=== PATIENT | male | born 1975 | race Caucasian/White ===

== ENCOUNTER 2018-03-01 19:20 | Emergency (ER) | payer OTHER ==
[~2018-03-01] VITALS: Ht 177.8 cm; Wt 85.0 kg
[2018-03-01] MEDS ORDERED: SODIUM CHLORIDE 0.9% 1,000 ML IV ONE (19:47)
[2018-03-01] MEDS ORDERED: ASPIRIN 81 MG TABLET CHEW PO ONE (20:00)
[2018-03-01] MEDS ORDERED: PROPARACAINE OPHTH 0.5%, 15ML EACHEYE ONE (20:00)
[2018-03-01] MEDS ORDERED: ASPIRIN 81 MG TABLET CHEW ONE (20:01)
[2018-03-01] MEDS ORDERED: PROPARACAINE OPHTH 0.5%, 15ML ONE (20:01)
[2018-03-01 20:30] LABS: BASOPHILS # (AUTO) 0.04 x10^3/uL (0-0.1); BASOPHILS % (AUTO) 0 % (0-1); EOSINOPHILS # (AUTO) 0.04 x10^3/uL (0-0.4); EOSINOPHILS % (AUTO) 0 % (1-7); LYMPHOCYTES # (AUTO) 3.01 x10^3/uL (1-3.4); LYMPHOCYTES % (AUTO) 19 % (22-44); MD NO; MEAN CORPUSCULAR HEMOGLOBIN 29.4 pg (27.5-34.5); MEAN CORPUSCULAR HGB CONC 32.9 g/dL (33.2-36.2); MEAN CORPUSCULAR VOLUME 89.5 fL (81-97); MEAN PLATELET VOLUME 8.4 fL (7.4-10.4); MONOCYTES # (AUTO) 0.44 x10^3/uL (0.2-0.8); MONOCYTES % (AUTO) 3 % (2-9); NEUTROPHILS # (AUTO) 12.55 x10^3/uL (1.8-6.8); NEUTROPHILS % (AUTO) 78 % (42-75); PLATELET COUNT 225 x10^3/uL (130-400); RED BLOOD COUNT 5.94 x10^6/uL (4.38-5.82); RED CELL DISTRIBUTION WIDTH 14.4 % (9.4-14.8)
[2018-03-01 20:39] LABS: INTERNATIONAL NORMALIZED RATIO 1.11 (0.93-1.1); PROTHROMBIN TIME 11.5 Seconds (9.6-11.5)
[2018-03-01 20:42] LABS: ALBUMIN 4.4 g/dL (3.4-5.0); ANION GAP 7 mmol/L (5-15); CALCIUM 9.6 mg/dL (8.5-10.1); CHLORIDE 108 mmol/L (98-107); CREATININE 1.98 mg/dL (0.7-1.3)
[2018-03-01 20:46] LABS: TROPONIN I < 0.015 ng/mL (0.000-0.045)
[2018-03-01 22:14] LABS: MICROSCOPIC NOT IND
[2018-03-01 22:32] LABS: CULTURE INDICATED? NO
[2018-03-01 23:37] VITALS: BP 126/78
== END 2018-03-01 23:39 | disposition home or self-care (01) ==
LOC: ED 21:38
DX: H53.131 Sudden visual loss, right eye (principal); I50.9 Heart failure, unspecified; R51 Headache
CPT/HCPCS: 36415; 70450; 71045; 80048; 81003; 82040; 83880; 84484; 85025; 85610; 93005; 99285; J7030

== ENCOUNTER 2018-03-05 16:30 | Emergency (ER) | payer OTHER ==
[~2018-03-05] VITALS: Ht 177.8 cm; Wt 87.0 kg
[2018-03-05 17:27] LABS: BASOPHILS # (AUTO) 0.03 x10^3/uL (0-0.1); BASOPHILS % (AUTO) 0 % (0-1); EOSINOPHILS # (AUTO) 0.01 x10^3/uL (0-0.4); EOSINOPHILS % (AUTO) 0 % (1-7); LYMPHOCYTES # (AUTO) 2.17 x10^3/uL (1-3.4); LYMPHOCYTES % (AUTO) 16 % (22-44); MD NO; MEAN CORPUSCULAR HEMOGLOBIN 29.5 pg (27.5-34.5); MEAN CORPUSCULAR HGB CONC 32.7 g/dL (33.2-36.2); MEAN CORPUSCULAR VOLUME 90.1 fL (81-97); MEAN PLATELET VOLUME 8.3 fL (7.4-10.4); MONOCYTES # (AUTO) 0.61 x10^3/uL (0.2-0.8); MONOCYTES % (AUTO) 5 % (2-9); NEUTROPHILS # (AUTO) 10.43 x10^3/uL (1.8-6.8); NEUTROPHILS % (AUTO) 79 % (42-75); PLATELET COUNT 233 x10^3/uL (130-400); RED BLOOD COUNT 5.83 x10^6/uL (4.38-5.82); RED CELL DISTRIBUTION WIDTH 14.3 % (9.4-14.8)
[2018-03-05 17:35] LABS: ALANINE AMINOTRANSFERASE 21 U/L (12-78); ALBUMIN 4.3 g/dL (3.4-5.0); ANION GAP 10 mmol/L (5-15); CALCIUM 9.4 mg/dL (8.5-10.1); CHLORIDE 105 mmol/L (98-107); CREATININE 1.96 mg/dL (0.7-1.3)
[2018-03-05 17:37] LABS: ALKALINE PHOSPHATASE 54 U/L (45-117); BILIRUBIN,TOTAL 0.4 mg/dL (0.2-1.0); TOTAL PROTEIN 7.9 g/dL (6.4-8.2)
[2018-03-05] MEDS ORDERED: METOCLOPRAMIDE 5 MG/ML, 2ML IVPush ONE (18:30)
[2018-03-05] MEDS ORDERED: DIPHENHYDRAMINE 50 MG/ML, 1ML IVPush ONE (18:30)
[2018-03-05] MEDS ORDERED: KETOROLAC 30 MG/1 ML IVPush ONE (18:30)
[2018-03-05] MEDS ORDERED: SODIUM CHLORIDE 0.9% 1,000ML IVBOLUS ONE (18:30)
[2018-03-05] MEDS ORDERED: SODIUM CHLORIDE FLUSH 10ML SYR IVF ONE (19:00)
[2018-03-05] MEDS ORDERED: METOCLOPRAMIDE 5 MG/ML, 2ML ONE (19:02)
[2018-03-05] MEDS ORDERED: PROCHLORPERAZINE 5 MG/ML, 2ML ONE (19:05)
[2018-03-05] MEDS ORDERED: PROCHLORPERAZINE 5 MG/ML, 2ML IVPush ONE (19:30)
[2018-03-05 20:40] VITALS: BP 134/67
== END 2018-03-05 20:42 | disposition home or self-care (01) ==
LOC: ED 20:36
DX: H53.8 Other visual disturbances (principal); I50.9 Heart failure, unspecified
CPT/HCPCS: 36415; 70551; 80053; 85025; 96374; 99285; J0780; J7030

== ENCOUNTER → 2018-03-29 | Outpatient (CLI) | payer OTHER | END | disposition home or self-care (01) | LOC: RAD 06:52 | PROVIDERS: ATTEND Psychiatry & Neurology Neurology | DX: C74.90 Malignant neoplasm of unspecified part of unspecified adrenal gland (principal); H53.8 Other visual disturbances | CPT/HCPCS: 70544; 70547 ==

== ENCOUNTER → 2018-11-29 | Outpatient (CLI) | payer OTHER | END | disposition home or self-care (01) | LOC: CFH 08:07 | PROVIDERS: ATTEND Internal Medicine Nephrology | DX: R60.9 Edema, unspecified (principal); Z94.0 Kidney transplant status | CPT/HCPCS: 76776 ==

== ENCOUNTER 2019-07-28 09:37 | Emergency (ER) | payer OTHER ==
[~2019-07-28] VITALS: Ht 177.8 cm; Wt 88.5 kg
[2019-07-28 09:46] VITALS: BP 126/90
--- NOTE | 2019-07-28 09:58 | NUR ---
PT WAS INJECTING TESTOSTERONE AND "THE NEEDLE SHOT OUT INTO MY BUTTOCK". PT SAYS HE CANT FEEL IT.
== END 2019-07-28 12:04 | disposition home or self-care (01) ==
LOC: ED 10:26
DX: S70.252A Superficial foreign body, left hip, initial encounter (principal); I50.9 Heart failure, unspecified; Z85.828 Personal history of other malignant neoplasm of skin; X58.XXXA Exposure to other specified factors, initial encounter; Y93.89 Activity, other specified; Y92.89 Other specified places as the place of occurrence of the external cause; Y99.8 Other external cause status
CPT/HCPCS: 99283

== ENCOUNTER 2019-11-23 06:56 | Day surgery (SDC) | payer OTHER ==
[~2019-11-23] VITALS: Ht 177.8 cm; Wt 88.0 kg
[~2019-11-23 06:56] MED LIST: ALLO100T30 PO; ASPI-496 PO; ATOR10TA9 PO; ERGO500017 PO; FAMO-79 PO; FURO40TA6 PO; METO25TA35 PO; MYCO360T PO; NIFE60TA13 PO; OMEP40CA42 PO; PRED10TA PO; TACR1CAP5 PO; TEST100V2 INJ; ZOLP10TA PO
[2019-11-23] MEDS ORDERED: LACTATED RINGERS 1,000 ML IV SCH (07:21)
[2019-11-23 07:28] VITALS: BP 110/75
[2019-11-23] MEDS ORDERED: FENTANYL PF 100 MCG/2ML ONE ×2 (07:31→07:47)
[2019-11-23] MEDS ORDERED: MIDAZOLAM 1 MG/ML, 2ML ONE ×2 (07:31→07:46)
[2019-11-23] MEDS ORDERED: LIDOCAINE-MPF 2% ,5ML ONE (08:32)
[2019-11-23] MEDS ORDERED: SUCCINYLCHOLINE 20 MG/ML, 10ML ONE (08:33)
[2019-11-23] MEDS ORDERED: ROCURONIUM 10 MG/ML,10ML ONE (08:33)
[2019-11-23] MEDS ORDERED: CLINDAMYCIN 150 MG/ML, 6ML ONE (08:45)
[2019-11-23] MEDS ORDERED: ONDANSETRON 2MG/ML, 2ML ONE (09:12)
[2019-11-23] MEDS ORDERED: DEXAMETHASONE 4 MG/ML, 1ML ONE (09:12)
[2019-11-23] MEDS ORDERED: PROPOFOL 10 MG/ML, 20ML ONE (09:12)
[2019-11-23] MEDS ORDERED: BUPIVACAINE/PF 0.5% ONE (09:12)
[2019-11-23] MEDS ORDERED: PROMETHAZINE 25 MG/ML, 1ML IVPush PRN (09:30)
[2019-11-23] MEDS ORDERED: OXYcodone 5 MG/5 ML ORAL.SOL UDC PO PRN (09:30)
[2019-11-23] MEDS ORDERED: LORazepam 2 MG/ML, 1ML IVPush PRN (09:30)
[2019-11-23] MEDS ORDERED: ACETAMINOPHEN 325 MG TABLET PO PRN (09:30)
[2019-11-23] MEDS ORDERED: MEPERIDINE/PF 25MG/0.5ML IVPush PRN (09:30)
[2019-11-23] MEDS ORDERED: hydrALAzine 20 MG/ML, 1ML IV PRN (09:30)
[2019-11-23] MEDS ORDERED: FENTANYL PF 100 MCG/2ML IV PRN (09:30)
[2019-11-23] MEDS ORDERED: LABETALOL 5MG/ML, 20ML IV PRN (09:30)
== END 2019-11-23 11:30 | disposition home or self-care (01) ==
LOC: OUT 06:56
PROVIDERS: ATTEND Orthopaedic Surgery
DX: S43.432A Superior glenoid labrum lesion of left shoulder, initial encounter (principal); Z11.59 Encounter for screening for other viral diseases; M24.412 Recurrent dislocation, left shoulder; M94.212 Chondromalacia, left shoulder; M24.012 Loose body in left shoulder; I10 Essential (primary) hypertension; K21.9 Gastro-esophageal reflux disease without esophagitis; E78.5 Hyperlipidemia, unspecified; M10.9 Gout, unspecified; Z79.899 Other long term (current) drug therapy; Z85.528 Personal history of other malignant neoplasm of kidney; Z88.0 Allergy status to penicillin; Z88.2 Allergy status to sulfonamides; Z88.8 Allergy status to other drugs, medicaments and biological substances; Z94.0 Kidney transplant status; Z90.5 Acquired absence of kidney; Z98.890 Other specified postprocedural states; Z82.49 Family history of ischemic heart disease and other diseases of the circulatory system; Z82.3 Family history of stroke; X58.XXXA Exposure to other specified factors, initial encounter; Y93.89 Activity, other specified; Y92.89 Other specified places as the place of occurrence of the external cause; Y99.8 Other external cause status
CPT/HCPCS: 29806; 64415; C1713; J0330; J1100; J2250; J2405; J2704; J3010; J7120; U0001